=== PATIENT | male | born 2000 | race Caucasian/White ===

== ENCOUNTER 2020-07-19 15:39 | Emergency (ER) | payer OTHER ==
[~2020-07-19] VITALS: Ht 170.2 cm; Wt 69.0 kg
[2020-07-19] MEDS ORDERED: ONDANSETRON 4 MG ORAL DISINTEGRATING TAB PO ONE (16:10)
[2020-07-19] MEDS ORDERED: MORPHINE 2 MG/ML 1ML VIAL (J2270) IV ONE (16:10)
[2020-07-19] MEDS ORDERED: NS 1,000 ML IV ONE (16:10)
--- NOTE | 2020-07-19 16:35 | REP ---
INDICATION: trauma COMPARISON: None. TECHNIQUE: AP, lateral, bilateral oblique views right 2nd digit. FINDINGS: There is a transverse fracture through the distal phalanx terminal tuft along with soft tissue laceration. IMPRESSION: Fracture and laceration. <Electronically signed by Matt Blackwood > 07/19/20 [id number]
--- NOTE | 2020-07-19 17:20 | REP ---
INDICATION: trauma COMPARISON: None. TECHNIQUE: Axial noncontrast images from the skull base to the vertex with coronal reformations. This CT examination was performed using the following dose reduction techniques: Automated exposure control, adjustment of mA and/or kv according to the patient's size, and use of iterative reconstruction technique. FINDINGS: The ventricles, sulci, and cisterns are normal in position and appearance. Jc-white differentiation is maintained. No acute intracranial hemorrhage, mass/mass effect, pathology or trauma/injury. No evidence for acute infarction. No extra-axial fluid collection. Calvarium is intact. Paranasal sinuses and mastoid air cells are clear. IMPRESSION: Normal noncontrast head CT. No evidence for acute intracranial pathology or trauma/injury. <Electronically signed by Matt Blackwood > 07/19/20 [id number]
[2020-07-19] MEDS ORDERED: ceFAZolin SOD 1 GM in D5W MINI-BAG PLUS 50 ML IV ONE (18:50)
[2020-07-19 19:30] VITALS: BP 129/69
[2020-07-19] MEDS ORDERED: KETOROLAC 30 MG/ML 1ML VIAL IV ONE (19:40)
--- NOTE | 2020-07-20 10:50 | CR ---
CONSULTATION DATE: 07/19/2020 CHIEF COMPLAINT: Right index finger open fracture and nail bed injury. 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 He was doing some skateboarding/longboarding. He fell on an outstretched hand. He is seen today in the emergency department by the physician automotive parts counter assistant and consulted to myself. No prior injuries. The patient is right hand dominant. PAST MEDICAL HISTORY: None. MEDICATIONS: None. ALLERGIES: No known drug allergies. PAST SURGICAL HISTORY: None. SOCIAL HISTORY: He is in the [employer]. He is right hand dominant. He vapes. He does not smoke or use illicit drugs. PHYSICAL EXAMINATION: This is a well-appearing 19-year-old man. There is a transverse laceration just at the eponychium with the nail completely lifted up. This is an open fracture actively bleeding. It is covered with wet gauze. Normal sensation on both sides of the digit. Capillary refill under 3 seconds. It is obviously lifted up at the base of the nail. IMAGING DATA: Radiographs are reviewed of the hand. This shows a transverse fracture through the distal phalanx and terminal tuft along with soft tissue laceration. ASSESSMENT AND PLAN: This 19-year-old man has a right index finger open fracture and nail bed injury "Shay fracture" pattern. Upon my review of the literature, this typically requires open reduction internal fixation, irrigation and debridement, as well as referral to a hand specialist for under loop magnification typically 7-0 suture repair of the nail bed, as well as repair of the germinal matrix with removal and/or placement of the nail and pinning. I am not a hand specialist and the nearest center is [place], so I do recommend transfer to that center for management of this acute injury. I recommend the physician automotive parts counter assistant customer contact representative managing the case to start intravenous antibiotics with Ancef 2 grams IV, as well as ensure that tetanus is up to date, which he states that it is within the last two years and wet gauze and splinting in extension until the patient can have definitive management of this somewhat uncommon injury. I let the patient know that he should be kept fasting, as well as I let the PA customer contact representative know that the patient will need emergent transfer as well.
== END 2020-07-19 19:57 | disposition home or self-care (01) ==
LOC: M ED 15:39
DX: S00.81XA Abrasion of other part of head, initial encounter (principal); S62.600B Fracture of unspecified phalanx of right index finger, initial encounter for open fracture; V00.131A Fall from skateboard, initial encounter; Y92.89 Other specified places as the place of occurrence of the external cause
CPT/HCPCS: 70450; 73140; 82077; 96361; 96365; 96375; 99284; J0690; J1885; J2270; Q0162

== ENCOUNTER 2021-01-17 14:12 | Outpatient (CLI) | payer OTHER ==
[~2021-01-17] VITALS: Ht 170.2 cm; Wt 68.1 kg
[2021-01-17 14:27] VITALS: BP 125/27
[2021-01-17] MEDS ORDERED: IMMUNE GLOBULIN 10% 20 GM in IV 1 EA IV ONE (15:00)
[2021-01-17 15:20] VITALS: BP 127/55
[2021-01-17 15:50] VITALS: BP 130/58
[2021-01-17 16:30] VITALS: BP 128/62
[2021-01-17 17:15] VITALS: BP 130/56
== END 2021-01-17 17:15 | disposition home or self-care (01) ==
LOC: M INFU 14:12
PROVIDERS: ATTEND Psychiatry & Neurology Neurology
DX: G61.81 Chronic inflammatory demyelinating polyneuritis (principal)
CPT/HCPCS: 96365; 96366; J1459

== ENCOUNTER 2021-01-18 10:16 | Outpatient (CLI) | payer OTHER ==
[~2021-01-18] VITALS: Ht 170.2 cm; Wt 68.1 kg
[2021-01-18] MEDS ORDERED: IMMUNE GLOBULIN 10% 20 GM in IV 1 EA IV ONE (10:30)
[2021-01-18 10:38] VITALS: BP 117/57
[2021-01-18 11:05] VITALS: BP 105/53
[2021-01-18 12:50] VITALS: BP 117/54
== END 2021-01-18 13:00 | disposition home or self-care (01) ==
LOC: M INFU 10:16
PROVIDERS: ATTEND Psychiatry & Neurology Neurology
DX: G61.81 Chronic inflammatory demyelinating polyneuritis (principal); D37.9 Neoplasm of uncertain behavior of digestive organ, unspecified
CPT/HCPCS: 96365; 96366; J1459

== ENCOUNTER 2021-01-19 09:01 | Outpatient (CLI) | payer OTHER ==
[~2021-01-19] VITALS: Ht 170.2 cm; Wt 68.1 kg
[2021-01-19 09:05] VITALS: BP 114/52
[2021-01-19] MEDS ORDERED: IMMUNE GLOBULIN 10% 20 GM in IV 1 EA IV ONE (09:30)
[2021-01-19 10:00] VITALS: BP 122/58
[2021-01-19 10:30] VITALS: BP 118/54
[2021-01-19 11:00] VITALS: BP 130/53
[2021-01-19 11:30] VITALS: BP 130/53
== END 2021-01-19 10:55 | disposition home or self-care (01) ==
LOC: M INFU 09:01
PROVIDERS: ATTEND Psychiatry & Neurology Neurology
DX: G37.9 Demyelinating disease of central nervous system, unspecified (principal)
CPT/HCPCS: 96365; 96366; J1459

== ENCOUNTER 2021-01-20 13:58 | Outpatient (CLI) | payer OTHER ==
[~2021-01-20] VITALS: Ht 170.2 cm; Wt 68.1 kg
[2021-01-20] MEDS ORDERED: IMMUNE GLOBULIN 10% 20 GM in IV 1 EA IV ONE (14:00)
[2021-01-20 14:14] VITALS: BP 117/52
[2021-01-20 14:40] VITALS: BP 109/54
[2021-01-20 15:30] VITALS: BP 106/46
[2021-01-20 16:34] VITALS: BP 126/63
== END 2021-01-20 17:02 | disposition home or self-care (01) ==
LOC: M INFU 13:58
PROVIDERS: ATTEND Psychiatry & Neurology Neurology
DX: G37.9 Demyelinating disease of central nervous system, unspecified (principal)
CPT/HCPCS: 96365; 96366; J1459

== ENCOUNTER 2021-01-21 13:34 | Outpatient (CLI) | payer OTHER ==
[~2021-01-21] VITALS: Ht 170.2 cm; Wt 68.1 kg
[2021-01-21 13:35] VITALS: BP 140/56
[2021-01-21] MEDS ORDERED: IMMUNE GLOBULIN 10% 20 GM in IV 1 EA IV ONE (14:00)
[2021-01-21 14:30] VITALS: BP_SYST 112; BP_SYST 12; BP_DIAS 50
[2021-01-21 15:00] VITALS: BP 129/54
[2021-01-21 16:00] VITALS: BP 132/57
== END 2021-01-21 16:20 | disposition home or self-care (01) ==
LOC: M INFU 13:34
PROVIDERS: ATTEND Psychiatry & Neurology Neurology
DX: G37.9 Demyelinating disease of central nervous system, unspecified (principal)
CPT/HCPCS: 96365; 96366; J1459